=== PATIENT | male | born 1985 | race Two or more races ===

== ENCOUNTER 2020-09-27 15:11 | Emergency (ER) | payer OTHER ==
[~2020-09-27] VITALS: Ht 177.8 cm; Wt 88.0 kg
[2020-09-27] MEDS ORDERED: LIDOcaine 1% 30ml preserv. free vial IJ ONE (18:45)
[2020-09-27] MEDS ORDERED: TETanus/Pertussis (Acell)/Diphther VAC/PF (Tdap-Adult) 0.5ml syringe IMVAC ONE (18:55)
[2020-09-27] MEDS ORDERED: cephalexin 500mg capsule PO ONE (19:50)
[2020-09-27] MEDS ORDERED: HYDR-3965 PO (19:50)
[2020-09-27] MEDS ORDERED: CEPH-585 PO (19:52)
[2020-09-27] MEDS ORDERED: HYDROcodone/acetaminophen 10/325mg tab PO ONE (20:05)
[2020-09-27 20:26] VITALS: BP 135/78
== END 2020-09-27 20:28 | disposition home or self-care (01) ==
LOC: ER 15:12
DX: S68.110A Complete traumatic metacarpophalangeal amputation of right index finger, initial encounter (principal); X58.XXXA Exposure to other specified factors, initial encounter; Y93.89 Activity, other specified; Y92.89 Other specified places as the place of occurrence of the external cause; Y99.8 Other external cause status
CPT/HCPCS: 26236; 73140; 90471; 90715; 99284